=== PATIENT | female | born 1955 ===

== ENCOUNTER 2021-01-03 08:41 | Outpatient (REF) | payer SELFPAY ==
[2021-01-06 03:07] LABS: HPV mRNA E6/E7 rflx Not Detected (Not Detected)
== END 2021-01-03 08:42 | disposition home or self-care (01) ==
LOC: HO.LAB 08:41
PROVIDERS: PCP Internal Medicine; Visit Provider Obstetrics & Gynecology
DX: Z01.419 Encounter for gynecological examination (general) (routine) without abnormal findings (principal); Z11.51 Encounter for screening for human papillomavirus (HPV); I10 Essential (primary) hypertension; E78.5 Hyperlipidemia, unspecified; F32.9 Major depressive disorder, single episode, unspecified; Z79.899 Other long term (current) drug therapy
CPT/HCPCS: 36415; 87624; 88142

== ENCOUNTER 2021-01-08 07:45 | Outpatient (REF) | payer OTHER, SELFPAY ==
--- NOTE | ~2021-01-08 | MM_ITS ---
EXAMINATION: MM SCREENING DIGITAL BREAST TOMOSYNTHESIS, BILATERAL CLINICAL INFORMATION: Screening. Asymptomatic. The lifetime risk of breast cancer based on the Tyrer-Cuzick Model is 4%. COMPARISON: Mammography: 01/03/2020, 11/09/2018, 11/03/2017 TECHNIQUE: Digital breast tomosynthesis is performed in both the craniocaudal and mediolateral oblique views along with computer-aided detection (CAD). Synthesized 2D images are generated from the tomosynthesis. FINDINGS: There are scattered areas of fibroglandular density (ACR BI-RADS breast composition Category b). There are no significant masses, abnormal calcifications, or other abnormalities. Parenchymal pattern is similar to prior studies. MM/MM tomosynthesis screening BI IMPRESSION: No mammographic evidence of malignancy. ASSESSMENT: BI-RADS 1: Negative RECOMMENDATION: Routine annual mammography screening. This patient's information was entered into a reminder system with a target due date for their next mammogram.
== END 2021-01-08 07:46 | disposition home or self-care (01) ==
LOC: HO.MAMMO 07:45
PROVIDERS: Visit Provider Obstetrics & Gynecology
DX: Z12.31 Encounter for screening mammogram for malignant neoplasm of breast (principal)
CPT/HCPCS: 77063; 77067

== ENCOUNTER 2021-04-14 10:54 | Outpatient (REF) | payer OTHER, SELFPAY ==
[2021-04-14 12:57] LABS: Free T4 (Free Thyroxine) 0.91 ng/dL (0.71-1.85); Thyroid Stimulating Hormone 1.21 uIU/mL (0.32-4.0)
[2021-04-14 13:06] LABS: Alanine Aminotransferase 20 U/L (0-31); Alkaline Phosphatase 60 U/L (39-117); Aspartate Amino Transferase 25 U/L (5-31); Bilirubin Direct 0.8 mg/dL (0.0-0.5); Bilirubin Total 1.9 mg/dL (0.0-1.0); Total Protein 6.2 g/dL (6.5-8.0)
== END 2021-04-14 10:55 | disposition home or self-care (01) ==
LOC: HO.LAB 10:54
PROVIDERS: PCP Internal Medicine; Visit Provider Physician Assistant
DX: R53.83 Other fatigue (principal); R94.5 Abnormal results of liver function studies
CPT/HCPCS: 36415; 80076; 84439; 84443

== ENCOUNTER 2021-04-29 12:37 | Outpatient (REF) | payer OTHER, SELFPAY ==
--- NOTE | ~2021-04-29 | XR_ITS ---
EXAMINATION: BILATERAL ANKLE X-RAY CLINICAL INFORMATION: Bilateral ankle swelling COMPARISON: None TECHNIQUE: 3 views of each ankle FINDINGS: Bone alignment is normal. No fracture or dislocation is seen. The ankle mortise is normal. There is a right plantar calcaneal spur. Soft tissues are otherwise unremarkable. XR/XR ankle RT min 3V IMPRESSION: Unremarkable ankles. Right plantar calcaneal spur.
--- NOTE | ~2021-04-29 | XR_ITS ---
EXAMINATION: BILATERAL ANKLE X-RAY CLINICAL INFORMATION: Bilateral ankle swelling COMPARISON: None TECHNIQUE: 3 views of each ankle FINDINGS: Bone alignment is normal. No fracture or dislocation is seen. The ankle mortise is normal. There is a right plantar calcaneal spur. Soft tissues are otherwise unremarkable. XR/XR ankle LT min 3V IMPRESSION: Unremarkable ankles. Right plantar calcaneal spur.
== END 2021-04-29 12:38 | disposition home or self-care (01) ==
LOC: HO.XRAY 12:37
PROVIDERS: PCP Internal Medicine; Visit Provider Physician Assistant
DX: M25.472 Effusion, left ankle (principal); M25.471 Effusion, right ankle
CPT/HCPCS: 73610

== ENCOUNTER → 2022-01-05 09:15 | Outpatient (BNVA) | payer OTHER, BC, SELFPAY | PROVIDERS: PCP Internal Medicine; Visit Provider Obstetrics & Gynecology ==

== ENCOUNTER 2022-01-10 07:50 | Outpatient (REF) | payer OTHER, BC, SELFPAY ==
--- NOTE | ~2022-01-10 | MM_ITS ---
EXAMINATION: MM SCREENING DIGITAL BREAST TOMOSYNTHESIS, BILATERAL CLINICAL INFORMATION: Screening. Asymptomatic. The lifetime risk of breast cancer based on the Tyrer-Cuzick Model is 5%. COMPARISON: Mammography: 01/08/2021, 01/03/2020, 11/09/2018 TECHNIQUE: Digital breast tomosynthesis is performed in both the craniocaudal and mediolateral oblique views along with computer-aided detection (CAD). Synthesized 2D images are generated from the tomosynthesis. FINDINGS: There are scattered areas of fibroglandular density (ACR BI-RADS breast composition Category b). There are no significant masses, abnormal calcifications, or other abnormalities. Parenchymal pattern is similar to prior studies. There is no developing density or architectural abnormality. The axilla and skin contours are unremarkable. No significant changes. MM/MM tomosynthesis screening BI IMPRESSION: No mammographic evidence of malignancy. ASSESSMENT: BI-RADS 1: Negative RECOMMENDATION: Routine annual mammography screening. This patient's information was entered into a reminder system with a target due date for their next mammogram.
== END 2022-01-10 07:51 | disposition home or self-care (01) ==
LOC: HO.MAMMO 07:50
PROVIDERS: PCP Internal Medicine; Visit Provider Obstetrics & Gynecology
DX: Z12.31 Encounter for screening mammogram for malignant neoplasm of breast (principal)
CPT/HCPCS: 77063; 77067

== ENCOUNTER 2022-11-30 08:22 | Outpatient (REF) | payer MEDICARE, OTHER, SELFPAY ==
[2022-11-30 10:12] LABS: Folate 15.9 ng/mL (> or = 4.0); Vitamin B12 1603 pg/mL (200-900)
[2022-11-30 10:13] LABS: Alanine Aminotransferase 34 U/L (0-31); Albumin Level 3.4 g/dL (3.5-5.0); Alkaline Phosphatase 108 U/L (39-117); Amylase 50 U/L (28-100); Anion Gap 16 (12-20); Aspartate Amino Transferase 86 U/L (5-31); Bilirubin Direct 3.9 mg/dL (0.0-0.5); Bilirubin Total 6.3 mg/dL (0.0-1.0); Blood Urea Nitrogen 5 mg/dL (9-16); Calcium 9.3 mg/dL (8.4-10.2); Carbon Dioxide 23 mmol/L (22-29); Chloride 100 mmol/L (96-108); Estimated Glomerular Filt Rate > 60; Gamma Glutamyl Transpeptidase 436 U/L (7-33); Glucose Random 102 mg/dL (60-115); Lipase 67 U/L (8-78); Magnesium 1.7 mg/dL (1.6-2.6); Sodium 135 mmol/L (135-145); Total Protein 6.2 g/dL (6.5-8.0); Vitamin D 25-OH Total 34.4 ng/mL (>30)
[2022-12-04 06:33] LABS: Vitamin B1 <6 nmol/L (8-30)
== END 2022-11-30 08:23 | disposition home or self-care (01) ==
LOC: HO.LAB 08:22
PROVIDERS: PCP Internal Medicine; Visit Provider Physician Assistant
DX: F10.99 Alcohol use, unspecified with unspecified alcohol-induced disorder (principal)
CPT/HCPCS: 36415; 80053; 82150; 82248; 82306; 82607; 82746; 82977; 83690; 83735; 84425

== ENCOUNTER 2022-12-04 09:51 | Outpatient (REF) | payer MEDICARE, OTHER, SELFPAY ==
--- NOTE | ~2022-12-04 | US_ITS ---
EXAMINATION: US ABDOMEN COMPLETE CLINICAL INFORMATION: Unspecified alcohol-induced disorder. COMPARISON: None TECHNIQUE: Real-time imaging of the abdominal viscera. FINDINGS: PANCREAS: Normal. ABDOMINAL AORTA: The proximal, mid, and distal segments are normal in caliber. INFERIOR VENA CAVA: Visualized portions are normal. LIVER: The liver is normal in size. Mildly nodular liver contour. Diffuse increased echogenicity of the liver parenchyma. No focal hepatic lesion. There is no intrahepatic biliary duct dilatation seen. GALLBLADDER: The gallbladder is physiologically distended without evidence of stones, polyps, wall thickening or pericholecystic fluid. COMMON BILE DUCT: Normal in caliber measuring 0.6 cm in diameter. RIGHT KIDNEY: Normal. No hydronephrosis. No renal calculi or focal parenchymal lesions. The kidney measures 10.1 cm in maximum dimension. LEFT KIDNEY: Normal. No hydronephrosis. No renal calculi or focal parenchymal lesions. The kidney measures 9.8 cm in maximum dimension. SPLEEN: Normal. The spleen measures 11.6 cm in maximum dimension. FREE FLUID: None. US/US abdomen complete IMPRESSION: Mildly nodular liver contour with diffuse increased echogenicity of the liver parenchyma. This is a nonspecific finding and may reflect early cirrhotic changes.
== END 2022-12-04 09:52 | disposition home or self-care (01) ==
LOC: HO.US 09:51
PROVIDERS: Visit Provider Physician Assistant
DX: F10.99 Alcohol use, unspecified with unspecified alcohol-induced disorder (principal)
CPT/HCPCS: 76700

== ENCOUNTER → 2023-01-11 09:11 | Outpatient (BNVA) | payer MEDICARE, OTHER, SELFPAY | PROVIDERS: PCP Internal Medicine; Visit Provider Obstetrics & Gynecology | DX: Z13.89 Encounter for screening for other disorder (principal) ==

== ENCOUNTER 2023-01-15 07:33 | Outpatient (REF) | payer MEDICARE, OTHER, SELFPAY ==
--- NOTE | ~2023-01-15 | MM_ITS ---
EXAMINATION: MM SCREENING DIGITAL BREAST TOMOSYNTHESIS, BILATERAL CLINICAL INFORMATION: Screening. Asymptomatic. The lifetime risk of breast cancer based on the Tyrer-Cuzick Model is 5%. COMPARISON: Multiple prior mammography exams, most recent 01/10/2022 TECHNIQUE: Digital breast tomosynthesis is performed in both the craniocaudal and mediolateral oblique views along with computer-aided detection (CAD). Synthesized 2D images are generated from the tomosynthesis. FINDINGS: There are scattered areas of fibroglandular density (ACR BI-RADS breast composition Category b). The right MLO view has asymmetric density anterior upper breast, 4.5 cm from nipple, likely summation artifact. Will be recalled for additional views to confirm. The remainder of the breasts are no significant mass or architectural abnormality or developing density. No abnormal calcifications. There is small circumscribed dermal lesion suggested posterior lower medial left breast. The axilla are unremarkable. MM/MM tomosynthesis screening BI IMPRESSION: Right: -Asymmetric density anterior breast on MLO view, likely summation artifact. Left: -No mammographic evidence of malignancy. ASSESSMENT: BI-RADS 0: Incomplete - Need Additional Imaging Evaluation RECOMMENDATION: 1. Additional views right breast (spot MLO, standard ML). 2. Targeted ultrasound if warranted after review of the additional views. 3. Radiology department staff will contact the patient for additional imaging. This patient's information was entered into a reminder system with a target due date for their next mammogram.
== END 2023-01-15 07:34 | disposition home or self-care (01) ==
LOC: HO.MAMMO 07:33
PROVIDERS: PCP Internal Medicine; Visit Provider Internal Medicine
DX: Z12.31 Encounter for screening mammogram for malignant neoplasm of breast (principal)
CPT/HCPCS: 77063; 77067

== ENCOUNTER 2023-01-18 08:29 | Outpatient (REF) | payer MEDICARE, OTHER, SELFPAY ==
--- NOTE | ~2023-01-18 | MM_ITS ---
EXAMINATION: MM DIAGNOSTIC DIGITAL BREAST TOMOSYNTHESIS, RIGHT CLINICAL INFORMATION: Recall from screening for asymmetric density anterior upper right breast on MLO view, suspected summation artifact. COMPARISON: Prior mammography exams, most recent 01/15/2023. TECHNIQUE: Digital breast tomosynthesis is performed. 2D images are generated from the tomosynthesis. The following views are obtained: Spot MLO, standard ML. FINDINGS: There are scattered areas of fibroglandular density (ACR BI-RADS breast composition Category b). Additional views show no asymmetric density or interval architectural abnormality or mass. Finding on recent screening exam is related to summation artifact as suspected. Results are discussed with the patient at time of visit. MM/MM tomosynthesis added views R IMPRESSION: Additional views show no significant changes from prior studies. ASSESSMENT: BI-RADS 1: Negative RECOMMENDATION: Routine annual mammography screening. This patient's information was entered into a reminder system with a target due date for their next mammogram.
--- NOTE | ~2023-01-18 | MM_ITS ---
EXAMINATION: BONE DENSITOMETRY CLINICAL INDICATION: Menopause. COMPARISON: Previous BD dated 02/07/2019 and baseline BD dated 07/27/2009. TECHNIQUE: Using a [employer] DXA System (software version: 13.1) manufactured by [employer], dual-energy x-ray absorptiometry was performed of the lumbar spine and left hip. The images are of good technical quality. Summary results are attached. FINDINGS: AP SPINE L1-L4: Current: BMD 0.967 g/cm2, Z-score 0.0, T-score -1.8, osteopenia, 1.6% increase from previous, 4.0% decrease from baseline (<5% change is not significant). Prior: BMD 0.952 g/cm2. Baseline: BMD 1.007 g/cm2. LEFT FEMUR, NECK: Current: BMD 0.604 g/cm2, Z-score -1.5, T-score -3.1, osteoporosis. Prior: BMD 0.744 g/cm2. Baseline: BMD 0.812 g/cm2. LEFT FEMUR, TOTAL: Current: BMD 0.615 g/cm2, Z-score -1.8, T-score -3.1, osteoporosis, 22.0% decrease from previous, 25.2% decrease from baseline (<5% change is not significant). Prior: BMD 0.788 g/cm2. Baseline: BMD 0.822 g/cm2. IDENTIFIED RISK FACTORS: Early menopause, secondary osteoporosis. HISTORY OF FRACTURE: None listed. MEDICATIONS: Calcium or multivitamin. Vitamin D. MM/XR DEXA axial skeleton IMPRESSION: 1. DIAGNOSIS: Osteoporosis based on the lowest T-score value of -3.1 in the femur neck and total femur applying World Health Organization criteria. 2. 10-YEAR FRACTURE RISK PREDICTION, FRAX: According to the guidelines, FRAX calculation should only be performed on patients in the osteopenia bone density category. Therefore, FRAX was not performed on this patient. 3. Treatment Recommendations: NOF guidelines recommend consideration for treatment in postmenopausal women and men age 50 and older presenting with the following: -A hip or vertebral (clinical or morphometric) fracture. -T-score less than or equal to -2.5 at the femoral neck or spine after appropriate evaluation to exclude secondary causes. -Low bone mass at the hip or spine and a 10-year fracture probability by FRAX of greater than or equal to 3% for hip fracture or greater than or equal to 20% for major osteoporotic fracture based on the [place] adapted WHO algorithm. 4. Other Recommendations: All treatment decisions require clinical judgment and consideration of individual patient factors, including patient preferences, comorbidities, previous drug use, risk factors not captured in the FRAX model (e.g. frailty, falls, vitamin D deficiency, increased bone turnover, interval significant decline in bone density) and possible under or overestimation of fracture risk by FRAX. Additional medical evaluation for secondary cause of low bone mineral density may be appropriate. FUTURE SCAN RECOMMENDATION: People with diagnosed cases of osteoporosis or at high risk for fracture should have regular bone mineral density tests. For patients eligible for Medicare, routine testing is allowed once every 2 years. The testing frequency can be increased to one year for patients who have rapidly progressing disease, those who are receiving or discontinuing medical therapy to restore bone mass, or have additional risk factors.
== END 2023-01-18 08:30 | disposition home or self-care (01) ==
LOC: HO.MAMMO 08:29
PROVIDERS: PCP Internal Medicine; Visit Provider Obstetrics & Gynecology
DX: R92.2 Inconclusive mammogram (principal); Z13.820 Encounter for screening for osteoporosis; Z78.0 Asymptomatic menopausal state
CPT/HCPCS: 77061; 77065; 77080

== ENCOUNTER → 2023-01-23 08:37 | Outpatient (BNVA) | payer MEDICARE, OTHER, SELFPAY | PROVIDERS: PCP Internal Medicine; Visit Provider Obstetrics & Gynecology | DX: M81.0 Age-related osteoporosis without current pathological fracture (principal) | CPT/HCPCS: 99212 ==

== ENCOUNTER → 2023-04-13 07:45 | Outpatient (BNVA) | payer MEDICARE, OTHER, SELFPAY | PROVIDERS: PCP Internal Medicine; Visit Provider Student in an Organized Health Care Education/Training Program | DX: M81.0 Age-related osteoporosis without current pathological fracture (principal) | CPT/HCPCS: 99202 ==

== ENCOUNTER → 2023-05-09 09:24 | Outpatient (BNVA) | payer MEDICARE, OTHER, SELFPAY | PROVIDERS: PCP Internal Medicine; Visit Provider Internal Medicine Cardiovascular Disease | DX: G90.A Postural orthostatic tachycardia syndrome [POTS] (principal); R94.31 Abnormal electrocardiogram [ECG] [EKG]; I10 Essential (primary) hypertension; E78.5 Hyperlipidemia, unspecified | CPT/HCPCS: 93005; 99202 ==

== ENCOUNTER → 2023-05-18 08:08 | Outpatient (REF) | payer MEDICARE, OTHER, SELFPAY ==
--- NOTE | 2023-05-18 08:11 | HM_ITS ---
Conclusion: 1. Patient was monitored for total period of 7 days 2. Baseline was normal sinus with average heart of 100 beats per minute with frequent sinus tachycardia with 39.5% of time heart rate about 100 beats per minute 3. No significant pauses noted 4. Rare PACs noted 5. Patient did not report any symptoms but marked multiple events without any corresponding arrhythmias MTDD
== END ==
LOC: HO.CARD 08:08
PROVIDERS: PCP Internal Medicine; Visit Provider Internal Medicine Cardiovascular Disease
DX: R00.2 Palpitations (principal); G90.A Postural orthostatic tachycardia syndrome [POTS]
CPT/HCPCS: 78452; 93017; 93242; A9500; J0280; J2785

== ENCOUNTER → 2023-05-18 08:11 | Outpatient (BNV) | payer MEDICARE, OTHER, SELFPAY | PROVIDERS: PCP Internal Medicine; Visit Provider Nurse Practitioner Family | DX: R00.0 Tachycardia, unspecified (principal) | CPT/HCPCS: 78452; 93016; 93018; 93244 ==

== ENCOUNTER → 2023-06-01 08:00 | Outpatient (REF) | payer MEDICARE, OTHER, SELFPAY ==
--- NOTE | 2023-06-01 08:05 | CA_ITS ---
Transthoracic Echocardiogram Patient (Last, First, Middle): Rosa Prasad M Gender: Female Date of : 1955 Age: 67 Procedure Date: 06/01/2023 Procedure Type: Transthoracic Echocardiogram Location: OP Height: 160.02 cm Weight: 59.42 kg BSA: 1.62 m2 Heart Rate: 88 bpm BP: 108 / 60 mmHg Pulverizer Feeder: SB Referring MD: Alberto Gardner MD Symptoms: R94.31 - Abnormal electrocardiogram [ECG] [EKG] Study Quality: Adequate ECG Rhythm: Sinus Conclusions: - Normal left ventricular size and systolic function. There is mildly increased left ventricular wall thickness. The visually estimated ejection fraction is between 65-70%. - E/E prime ratio is >15, consistent with elevated filling pressures. - Normal right ventricular cavity size and systolic function. - There is mild dilatation of the ascending aorta measuring 3.50 cm. Findings Procedure Information The quality of the study was technically difficult. Left Ventricle Normal left ventricular size and systolic function. There is mildly increased left ventricular wall thickness. The visually estimated ejection fraction is between 65-70%. There is no evidence of regional wall motion abnormalities. Abnormal diastolic function is noted. Spectral Doppler is indicative of a pseudonormal filling pattern. E/E prime ratio is >15, consistent with elevated filling pressures. Right Ventricle Normal right ventricular cavity size and systolic function. Atria The left atrium is mildly dilated. The right atrium is normal in size. Aortic Valve Normal aortic valve structure and function. There is a normal trileaflet aortic valve. There is no aortic valve stenosis. There is no aortic valve regurgitation. Mitral Valve Normal mitral valve structure and function. There is trace mitral valve regurgitation. There is no mitral valve stenosis. Pulmonic Valve Normal pulmonic valve structure and function. There is no pulmonic valve regurgitation. Tricuspid Valve Normal tricuspid valve structure and function. There is trace tricuspid valve regurgitation. Normal right atrial pressure. There is no evidence of pulmonary hypertension. Great Vessels There is mild dilatation of the ascending aorta measuring 3.50 cm. The visualized portions of the pulmonary artery and branches are normal. Venous The inferior vena cava is normal in size and collapses greater than 50% with inspiration. Pericardium/Pleural There is no evidence of pericardial effusion. Prior Study Comparison No prior study available for comparison. Measurements 2D Linear Measurements IVSd: 1.05 0.6-0.9/0.6-1.0 cm LVIDd: 4.92 3.9-5.3/4.2-5.9 cm LVIDd Index: 3.04 2.4-3.2/2.2-3.1 cm/m2 LVIDs: 3.35 2.0-3.6 cm LVPWd: 1.02 0.7-1.1 cm LA Diam: 4.30 2.7-3.8/3.0-4.0 cm LAIDs Index: 2.65 1.5-2.3 cm/m2 LV Mass: 231.33 67-162/88-224 g LV Mass Index: 142.80 43-95/49-115 g/m2 LVOT Diam: 2.00 3.0+(-)1.3 cm 2D Systolic Function EF 4C: 63.00 >55% EF 2C: 61.10 >55% EF BiP: 62.80 >55% Mitral Valve MV VTI: 0.26 MV Pk Juvenal: 1.32 MV Mn Juvenal: 0.89 MV Pk Grad: 7.00 MV Mn Grad: 4.00 MV Pk E: 1.15 MV PK A: 1.05 MV Decel Time: 194.00 E/A: 1.10 E'Lateral: 7.72 E'Medial: 6.96 E/E' Med: 16.50 E/E' Lat: 14.90 PHT: 57.00 MVA PHT: 3.86 MVA Continuity: 3.91 Decel [place]: 5.91 Aortic Valve AoV Pk Juvenal: 1.69 AoV Pk Grad: 11.00 SHARIF: 2.94 LVOT LVOT Pk Juvenal: 1.58 LVOT Mn Juvenal: 1.00 LVOT VTI: 0.32 LVOT Pk Grad: 10.00 LVOT Mn Grad: 5.00 LVOT Diam: 2.00 LVOT Area: 3.14 Diastolic Function MV Pk E: 1.15 MV Pk A: 1.05 E/A: 1.10 E'Medial: 6.96 E/E' Med: 16.50 E' Laterial: 7.72 E/E' Lat: 14.90 Right Ventricle TAPSE (mm): 24.00 TVS' Juvenal: 12.90 Tricuspid Valve TR Pk Juvenal: 2.59 TR Pk Grad: 27.00 RA Press: 8.00 RVSP: 35.00 Great Vessels Aorta Sinus of Valsalva: 2.80 2.0-3.5 cm Ao Asc: 3.50 2.1-3.4 cm Pulmonary Valve PV Pk Juvenal: 1.05 Peak PV Grad: 4.00 Updated in Other Vendor System with Status of Final Lyndon David MD electronically signed on 06/02/2023 9:33:54 PM with status of Final
== END ==
LOC: HO.CARD 08:00
PROVIDERS: PCP Internal Medicine; Visit Provider Internal Medicine Cardiovascular Disease
DX: R94.31 Abnormal electrocardiogram [ECG] [EKG] (principal)
CPT/HCPCS: 93306

== ENCOUNTER → 2023-06-01 08:05 | Outpatient (BNV) | payer MEDICARE, OTHER, SELFPAY | PROVIDERS: PCP Internal Medicine; Visit Provider Internal Medicine Cardiovascular Disease | DX: R94.31 Abnormal electrocardiogram [ECG] [EKG] (principal) | CPT/HCPCS: 93306 ==

== ENCOUNTER 2023-06-25 14:07 | Outpatient (AMB) | payer MEDICARE, OTHER, SELFPAY ==
[2023-06-25 14:11] VITALS: BP 108/62; PULSE 94; BMI 23.4
--- NOTE | 2023-06-25 14:11 | MHC.OFFVIS ---
Intake Vital Signs 06/25/23 14:11 Height 5 ft 3 in Weight 132 lb 4.438 oz BMI 23.4 BP 108/62 Blood Pressure Location Lt brachial Position Sitting Pulse 94 Intake Visit Reasons: 6 wk f/up testing Intake Note: 6 week follow-up after echo stress and holter feeling good Elevator Installer Required: No Stamping Mill Tender: Stamping Mill Tender Present Accompanied by: Spouse Allergies No Known Allergies Allergy (Verified 05/09/23 09:33) Medication List - Last Reconciled 06/25/23 by Alberto Gardner MD alendronate 70 mg PO QWEEK midodrine 2.5 mg PO TID venlafaxine ER 37.5 mg PO DAILY HPI HPI Comments History of Present Illness Details Rosa comes for follow-up. She is gradually increase activity level and is exercising and walking per 3 miles. She does still have fatigue but her symptoms of lightheadedness, rapid heart rate and limited exercise capacity a gradually improved. She says she feels better. She is not back up to her usual functional status. She is tolerating midodrine well and a blood pressures improved with systolic blood pressure 120-130 range. She started noticing some leg swelling. She denies any orthopnea, PND. Her Holter monitor did show frequent sinus tachycardia. Echocardiogram shows normal LV systolic function with suggestion of increased filling pressures with no valvular abnormality. Myocardial perfusion imaging is within normal limits. [facility], [facility] Medical History Depression HTN (hypertension) Hyperlipidemia Surgical History H/O breast biopsy Family History Paternal Aunt Breast cancer Social History Household Members: Spouse Housing: House Alcohol intake: current Patient Tobacco Use Status: Never used Tobacco Current occupational status: retired Sexual orientation: Straight/Heterosexual Gender identity: Female Female Reproductive History Menstrual Age of Menarche: 17 Review of Systems Const Denies chills, Denies fatigue, Denies fever(s), Denies frequent falls, Denies weakness, Denies weight gain and Denies weight loss ENT Denies dizziness Card Denies chest pain, Denies leg edema, Denies lightheadedness, Denies palpitations, Denies dyspnea, Denies dyspnea on exertion, Denies orthopnea and Denies other (loss of consciousness) Resp Denies cough, Denies dyspnea and Denies dyspnea on exertion GI Denies hematochezia and Denies change in stool character Musc Denies abnormal gait, Denies muscle weakness, Denies numbness, Denies radiating pain into limb and Denies tingling Neuro Denies Abnormal speech present, Denies abnormal gait, Denies dizziness, Denies frequent falls, Denies numbness, Denies tingling and Denies weakness Endo Denies fatigue and Denies palpitations Physical Exam Vital Signs: Last Vital Signs Pulse 94 06/25/23 14:11 BP 108/62 06/25/23 14:11 BMI result Body Mass Index 23.4 Const General: cooperative, comfortable, no acute distress, alert, awake and Physically active Nutritional Appearance: thin Orientation/consciousness: patient oriented x3 Limitations: no limitations Neck Neck: Yes trachea midline, Yes supple and Yes no JVD Resp Effort & Inspection: normal respiratory effort Auscultation: clear to auscultation bilaterally Cardio Jugular venous distension: no JVD Palpation: normal PMI Rate: regular rate Rhythm: regular rhythm Heart sounds: S1 normal heart sound present, S2 normal heart sound present, no click, no gallops, no murmurs and no rubs GI Auscultation: normal bowel sounds Neuro General: patient oriented x3 and no focal motor deficits Speech: No Abnormal speech present Extrem General: No clubbing, No cyanosis and Yes pedal edema Psych Appearance: grossly normal Affect: Anxious affect present Assessment & Plan Assessment & Plan (1) Postural orthostatic tachycardia syndrome: Code(s): G90.A - Postural orthostatic tachycardia syndrome [POTS] Plan: Postural orthostatic tachycardia syndrome which is improved now on midodrine therapy increase fluid intake. Noticing some kwesi ankle edema after long standing and prolonged walking. She has no other heart failure symptoms. She does have suggestion increased filling pressures on the echocardiogram. Advised to reduce salt intake. Continue maintain adequate oral fluid intake up to 2 L a day. Continue midodrine therapy. Continue participate in regular physical activity and increased exercise capacity as tolerated. Advised to continue monitor blood pressure at home maintain a log. If she develops significant hypertension she is at risk call my office. Avoidance of stimulants was discussed. Will follow up in the clinic in 6 months time, sooner p.r.n.. Thank you for allowing me to partake in the care Coding Level of Care Code Est Pt Level 4 (46462) Diagnoses Postural orthostatic tachycardia syndrome G90.A
== END 2023-06-25 14:41 | disposition home or self-care (01) ==
PROVIDERS: PCP Internal Medicine; Referring Provider Internal Medicine; Visit Provider Internal Medicine Cardiovascular Disease
DX: G90.A Postural orthostatic tachycardia syndrome [POTS] (principal)
CPT/HCPCS: 99214

== ENCOUNTER → 2023-06-25 14:07 | Outpatient (BNVA) | payer MEDICARE, OTHER, SELFPAY | PROVIDERS: PCP Internal Medicine; Referring Provider Internal Medicine; Visit Provider Internal Medicine Cardiovascular Disease | DX: G90.A Postural orthostatic tachycardia syndrome [POTS] (principal); I10 Essential (primary) hypertension; E78.5 Hyperlipidemia, unspecified | CPT/HCPCS: 99212 ==

== ENCOUNTER 2023-07-25 07:44 | Outpatient (RCR) | payer MEDICARE, OTHER, SELFPAY ==
[2023-07-25 08:07] VITALS: BP 140/63; PULSE 82
== END 2023-09-12 08:49 | disposition home or self-care (01) ==
LOC: HO.PT 07:44
PROVIDERS: PCP Internal Medicine; Visit Provider Internal Medicine
DX: R26.9 Unspecified abnormalities of gait and mobility (principal)
CPT/HCPCS: 97110; 97161

== ENCOUNTER 2023-10-15 14:16 | Outpatient (REF) | payer MEDICARE, OTHER, SELFPAY ==
[2023-10-15 15:40] LABS: Amphetamine Screen Urine Not Detected (Not Detect); Barbiturates, Urine Not Detected (Not Detect); Benzodiazepines Screen Urine Not Detected (Not Detect); Cannabinoid Screen Urine Not Detected (Not Detect); Cocaine Screen Urine Not Detected (Not Detect); Fentanyl, urine Not Detected (Not Detect); Opiate Screen Urine Not Detected (Not Detect); Phencyclidine Screen Urine Not Detected (Not Detect)
== END 2023-10-15 14:17 | disposition home or self-care (01) ==
LOC: HO.LAB 14:16
PROVIDERS: Visit Provider Registered Nurse School
DX: Z02.83 Encounter for blood-alcohol and blood-drug test (principal); F41.1 Generalized anxiety disorder; F10.20 Alcohol dependence, uncomplicated; Z62.811 Personal history of psychological abuse in childhood
CPT/HCPCS: 80307

== ENCOUNTER 2023-10-23 09:05 | Outpatient (AMB) | payer MEDICARE, OTHER, SELFPAY ==
--- NOTE | 2023-10-23 09:10 | MHC.OFFVIS ---
Intake Vital Signs 10/23/23 09:11 Height 5 ft 3 in Weight 132 lb 11.492 oz BMI 23.5 BP 150/72 H Blood Pressure Location Rt brachial Position Sitting Respiration 16 Pulse 114 H Pulse Source Pulse Oximeter Temp 97.7 F Temp Source Tympanic Pulse Oximetry (%) 99 Oxygen Delivery Method Room Air Intake Visit Reasons: Osteoporosis Bobbin Stripper Required: No Accompanied by: Self / Same As Patient Allergies No Known Allergies Allergy (Verified 10/23/23 09:13) Medication List - Last Reconciled 10/23/23 by Dee Martinez MD alendronate 70 mg PO QWEEK hydroxyzine HCl 25 mg PO BEDTIME midodrine 2.5 mg PO TID mirtazapine 7.5 mg PO BEDTIME venlafaxine ER 75 mg PO DAILY HPI HPI Comments History of Present Illness Details 68-year-old female with osteoporosis returns for follow-up. She has been taking alendronate weekly since last visit. States that she gets intermittent GI upset but symptoms are not significant enough to discontinue it. She is doing well otherwise. Denies any recent falls. No recent or planned dental work. Initial history: This is a 67-year-old female who is referred for management of osteoporosis. Patient had menopause at age 36. Premature ovarian failure. She stated that she was on osteoporosis medicine about 14 years ago. She took it for 7 years and her dentist advised her to stop it for risk of dental side effects. She has not been on any osteoporosis medication for 7 years. She stated that the medication started with a P but she does not remember its name. Patient denies any history of fractures. She has history of vertigo however. She she denies losing any height [facility] Medical History Hyperlipidemia HTN (hypertension) Depression Surgical History H/O breast biopsy Family History Paternal Aunt Breast cancer Social History Household Members: Spouse Housing: House Alcohol intake: current Patient Tobacco Use Status: Never used Tobacco Current occupational status: retired Sexual orientation: Straight/Heterosexual Gender identity: Female Female Reproductive History Menstrual Age of Menarche: 17 Review of Systems [facility] [place] arthralgias Physical Exam Vital Signs: Last Vital Signs Temp 97.7 F 10/23/23 09:11 Pulse 114 H 10/23/23 09:11 Resp 16 10/23/23 09:11 BP 150/72 H 10/23/23 09:11 Pulse Ox 99 10/23/23 09:11 Oxygen Delivery Method Room Air 10/23/23 09:11 BMI result Body Mass Index 23.5 Const General: cooperative, healthy appearing and comfortable Nutritional Appearance: average body habitus Orientation/consciousness: patient oriented x3 Limitations: no limitations HEENT Head: Yes normocephalic and Yes atraumatic Mouth: moist mucous membranes Resp Effort & Inspection: normal respiratory effort and able to speak in complete sentences Back/Spine/Pelvis Other: Negative straight leg raise test No paraspinal tenderness No midline tenderness Neuro General: patient oriented x3 Assessment & Plan Assessment & Plan (1) Osteoporosis: Comment: DEXA 02/01 T-score -3.1 Code(s): M81.0 - Age-related osteoporosis without current pathological fracture Qualifiers: Osteoporosis type: age-related Presence of current pathological fracture: without current pathological fracture Qualified Code(s): M81.0 - Age-related osteoporosis without current pathological fracture Plan: This is a 68-year-old female who was referred for evaluation of osteoporosis. Patient had premature ovarian failure at age 36. She was on medication for osteoporosis around 14 years ago, she took it for 7 years and stopped 7 years ago based on her dentist's advice. She there is no history of fractures. There is no height loss. She is unable to remember the name of the medication Last visit, we Discussed different treatment options. I stated that my preference would be Prolia. Patient however does not want any injections. She has been taking alendronate since 04/2023 regularly. Continue alendronate 70 mg once weekly. Continue vitamin-D. Plan to repeat DEXA 04/2025. Follow-up in 6 months Plan I spent 15 minutes reviewing patient's chart, evaluating patient, counseling patient and documenting in the chart Coding Level of Care Code Est Pt Level 3 (45613) Diagnoses Age-related osteoporosis without current pathological fracture M81.0 Osteoporosis type: age-related Presence of current pathological fracture: without current pathological fracture
[2023-10-23 09:11] VITALS: BP 150/72; PULSE 114; RESP 16; TEMP 36.5; O2SAT 99; BMI 23.5
== END 2023-10-23 09:35 | disposition home or self-care (01) ==
PROVIDERS: PCP Internal Medicine; Visit Provider Student in an Organized Health Care Education/Training Program
DX: M81.0 Age-related osteoporosis without current pathological fracture (principal)
CPT/HCPCS: 99213

== ENCOUNTER → 2023-10-23 09:05 | Outpatient (BNVA) | payer MEDICARE, OTHER, SELFPAY | PROVIDERS: PCP Internal Medicine; Visit Provider Student in an Organized Health Care Education/Training Program | DX: M81.0 Age-related osteoporosis without current pathological fracture (principal) | CPT/HCPCS: 99212 ==

== ENCOUNTER 2023-12-25 13:32 | Outpatient (AMB) | payer MEDICARE, OTHER, SELFPAY ==
[2023-12-25 13:30] VITALS: BP 124/78; PULSE 96; BMI 24.2
--- NOTE | 2023-12-25 13:30 | MHC.OFFVIS ---
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 She says the symptoms of orthostatic lightheadedness have improved significantly on midodrine therapy. Although she has been noticing some elevated blood pressure reading in the 140s systolic. This is not all the time. She has not had any syncopal episodes. She drinks adequate amount of water and also has good salt intake. Denies any other heart failure symptoms. [facility] Medical History Hyperlipidemia HTN (hypertension) Depression Surgical History H/O breast biopsy Family History Paternal Aunt Breast cancer Social History Household Members: Spouse Housing: House Alcohol intake: current Patient Tobacco Use Status: Never used Tobacco Current occupational status: retired Sexual orientation: Straight/Heterosexual Gender identity: Female Female Reproductive History Menstrual Age of Menarche: 17 Review of Systems Const Denies chills, Denies fatigue, Denies fever(s), Denies frequent falls, Denies weakness, Denies weight gain and Denies weight loss ENT Denies dizziness Card Denies chest pain, Denies leg edema, Denies lightheadedness, Denies palpitations, Denies dyspnea, Denies dyspnea on exertion, Denies orthopnea and Denies other (loss of consciousness) Resp Denies cough, Denies dyspnea and Denies dyspnea on exertion GI Denies hematochezia and Denies change in stool character Musc Denies abnormal gait, Denies muscle weakness, Denies numbness, Denies radiating pain into limb and Denies tingling Neuro Denies Abnormal speech present, Denies abnormal gait, Denies dizziness, Denies frequent falls, Denies numbness, Denies tingling and Denies weakness Endo Denies fatigue and Denies palpitations Physical Exam Vital Signs: Last Vital Signs Pulse 106 H 12/25/23 13:30 BP 124/78 12/25/23 13:30 BMI result Body Mass Index 24.2 Const General: cooperative, comfortable, no acute distress, alert, awake and Physically active Nutritional Appearance: thin Orientation/consciousness: patient oriented x3 Limitations: no limitations Neck Neck: Yes trachea midline, Yes supple and Yes no JVD Resp Effort & Inspection: normal respiratory effort Auscultation: clear to auscultation bilaterally Cardio Jugular venous distension: no JVD Palpation: normal PMI Rate: regular rate Rhythm: regular rhythm Heart sounds: S1 normal heart sound present, S2 normal heart sound present, no click, no gallops, no murmurs and no rubs GI Auscultation: normal bowel sounds Neuro General: patient oriented x3 and no focal motor deficits Speech: No Abnormal speech present Extrem General: No clubbing, No cyanosis and Yes pedal edema Psych Appearance: grossly normal Affect: Anxious affect present Assessment & Plan Assessment & Plan (1) Postural orthostatic tachycardia syndrome: Code(s): G90.A - Postural orthostatic tachycardia syndrome [POTS] Plan: Patient with orthostatic symptoms much improved with midodrine therapy although noticing elevated blood pressure reading sometimes. Advised to maintain a detailed log and presented to me in about a month's time. Continue midodrine therapy for now. She may have autonomic dysfunction with supine hypertension nighttime. This may need to be treated with will short-acting medication before bedtime. This was discussed with her. Advised to maintain adequate hydration. May cut back on the salt intake overall. Will follow up in the clinic in 1 year's time, sooner p.r.n.. Thank you for allowing me to partake in her care Coding Level of Care Code Est Pt Level 3 (90631) Diagnoses Postural orthostatic tachycardia syndrome G90.A
== END 2023-12-25 13:58 | disposition home or self-care (01) ==
PROVIDERS: PCP Internal Medicine; Visit Provider Internal Medicine Cardiovascular Disease
DX: G90.A Postural orthostatic tachycardia syndrome [POTS] (principal)
CPT/HCPCS: 99213

== ENCOUNTER → 2023-12-25 13:32 | Outpatient (BNVA) | payer MEDICARE, OTHER, SELFPAY | PROVIDERS: PCP Internal Medicine; Visit Provider Internal Medicine Cardiovascular Disease | DX: G90.A Postural orthostatic tachycardia syndrome [POTS] (principal) | CPT/HCPCS: 99212 ==

== ENCOUNTER 2024-01-18 07:36 | Outpatient (REF) | payer MEDICARE, OTHER, SELFPAY | END 2024-01-18 07:37 | disposition home or self-care (01) | LOC: HO.MAMMO 07:36 | PROVIDERS: PCP Internal Medicine; Visit Provider Internal Medicine | DX: Z12.31 Encounter for screening mammogram for malignant neoplasm of breast (principal) | CPT/HCPCS: 77063; 77067 ==

== ENCOUNTER → 2024-01-18 07:45 | Outpatient (BNV) | payer MEDICARE, OTHER, SELFPAY | PROVIDERS: PCP Internal Medicine; Visit Provider Radiology Diagnostic Radiology | DX: Z12.31 Encounter for screening mammogram for malignant neoplasm of breast (principal) | CPT/HCPCS: 77063; 77067 ==

== ENCOUNTER 2024-08-05 11:27 | Outpatient (AMB) | payer MEDICARE, OTHER, SELFPAY ==
--- NOTE | 2024-08-05 11:35 | A.OFFVIS_ITS ---
Vital Signs 08/05/24 11:40 Height 5 ft 3 in Weight 150 lb 9.211 oz BMI 26.7 BP 124/72 Blood Pressure Location Rt brachial Position Sitting Pulse 98 Pulse Source Pulse Oximeter Pulse Oximetry (%) 97 Oxygen Delivery Method Room Air Intake Visit Reasons: Osteoporosis Intake Note: Patient presents for Osteoporosis. Allergies No Known Allergies Allergy (Verified 08/05/24 11:38) Medication List - Last Reconciled 08/05/24 by Dee Martinez MD alendronate 70 mg PO QWEEK hydroxyzine HCl 25 mg PO BEDTIME midodrine 2.5 mg PO TID propranolol ER 60 mg PO BEDTIME venlafaxine ER 150 mg PO DAILY HPI Comments Details: 68-year-old female with osteoporosis returns for follow-up. Remains on alendronate 70 mg weekly. She states that it causes some GI upset but she is able to tolerate it. Initial history: This is a 67-year-old female who is referred for management of osteoporosis. Patient had menopause at age 36. Premature ovarian failure. She stated that she was on osteoporosis medicine about 14 years ago. She took it for 7 years and her dentist advised her to stop it for risk of dental side effects. She has not been on any osteoporosis medication for 7 years. She stated that the medication started with a P but she does not remember its name. Patient denies any history of fractures. She has history of vertigo however. She she denies losing any height PFSH Medical History Hyperlipidemia HTN (hypertension) Depression Surgical History H/O breast biopsy Family History Paternal Aunt Breast cancer Social History Household Members: Spouse Housing: House Alcohol intake: current Patient Tobacco Use Status: Never used Tobacco Current occupational status: retired Sexual orientation: Straight/Heterosexual Gender identity: Female Female Reproductive History Menstrual Age of Menarche: 17 Review of Systems Musc Details: Unsteadiness Physical Exam Vital Signs: Last Vital Signs Pulse 98 08/05/24 11:40 BP 124/72 08/05/24 11:40 Pulse Ox 97 08/05/24 11:40 Oxygen Delivery Method Room Air 08/05/24 11:40 BMI result Body Mass Index 26.7 Const General: cooperative, healthy appearing and comfortable Nutritional Appearance: average body habitus Orientation/consciousness: patient oriented x3 Limitations: no limitations HEENT Head: Yes normocephalic and Yes atraumatic Mouth: moist mucous membranes Resp Effort & Inspection: normal respiratory effort and able to speak in complete sentences Back/Spine/Pelvis Other: Negative straight leg raise test No paraspinal tenderness No midline tenderness Neuro General: patient oriented x3 Assessment & Plan Assessment & Plan (1) Osteoporosis: Comment: DEXA 02/01 T-score -3.1 Alendronate 01/2023 Code(s): M81.0 - Age-related osteoporosis without current pathological fracture Category: Medical Qualifiers: Osteoporosis type: age-related Presence of current pathological fracture: without current pathological fracture Qualified Code(s): M81.0 - Age- related osteoporosis without current pathological fracture Plan: This is a 68-year-old female who was referred for evaluation of osteoporosis. Patient had premature ovarian failure at age 36. She was on medication for osteoporosis around 14 years ago, she took it for 7 years and stopped 7 years ago based on her dentist's advice. She there is no history of fractures. There is no height loss. She is unable to remember the name of the medication On initial visit, we Discussed different treatment options. I stated that my preference would be Prolia. Patient however does not want any injections. She has been taking alendronate since 04/2023 regularly. Continue alendronate 70 mg once weekly. Continue vitamin-D. Plan to repeat DEXA 01/2025. Follow-up in February 2025. Blood work before next visit Plan I spent 15 minutes reviewing patient's chart, evaluating patient, ordering diagnostic workup, counseling patient and documenting in the chart Orders: Orders Protein Electrophoresis, Serum 6 Months M81.0 - Age-related osteoporosis without current pathological fracture Phosphorus 6 Months M81.0 - Age-related osteoporosis without current pathological fracture Collagen Type I C-Telopeptide 6 Months M81.0 - Age-related osteoporosis without current pathological fracture Parathyroid Hormone Intact 6 Months M81.0 - Age-related osteoporosis without current pathological fracture Vitamin D 25-OH Total 6 Months Z13.21 - Encounter for screening for nutritional disorder Comprehensive Met. Panel 6 Months M81.0 - Age-related osteoporosis without current pathological fracture Medications: Refilled alendronate 70 mg PO QWEEK 12 tabs 1RF Coding Level of Care Code Est Pt Level 3 (08489) Diagnoses Age-related osteoporosis without current pathological fracture M81.0 Osteoporosis type: age-related Presence of current pathological fracture: without current pathological fracture
[2024-08-05 11:40] VITALS: BP 124/72; PULSE 98; O2SAT 97; BMI 26.7
== END 2024-08-05 12:48 | disposition home or self-care (01) ==
PROVIDERS: PCP Internal Medicine; Visit Provider Student in an Organized Health Care Education/Training Program
DX: M81.0 Age-related osteoporosis without current pathological fracture (principal)
CPT/HCPCS: 99213

== ENCOUNTER → 2024-08-05 11:27 | Outpatient (BNVA) | payer MEDICARE, OTHER, SELFPAY | PROVIDERS: PCP Internal Medicine; Visit Provider Student in an Organized Health Care Education/Training Program | DX: M81.0 Age-related osteoporosis without current pathological fracture (principal) | CPT/HCPCS: 99212 ==